=== PATIENT | female | born 1980 | race Caucasian/White ===

== ENCOUNTER 2019-01-10 10:23 | Emergency (ER) | payer MEDICAID ==
[~2019-01-10] VITALS: Ht 167.6 cm; Wt 122.7 kg
[2019-01-10 10:27] VITALS: Ht 167.6 cm; Wt 122.7 kg
[2019-01-10] MEDS ORDERED: METOPROLOL TART50 MG PO (10:29)
[2019-01-10] MEDS ORDERED: LISINOPRIL10 MG PO (10:29)
[2019-01-10] MEDS ORDERED: FUROSEMIDE20 MG PO (10:29)
[2019-01-10] MEDS ORDERED: NEURONTIN 300300 MG PO (10:30)
[2019-01-10] MEDS ORDERED: K-TAB10 MEQ PO (10:31)
[2019-01-10] MEDS ORDERED: PROVENTIL/2.5 MG/3 M INH (10:31)
[2019-01-10] MEDS ORDERED: FLOVENT DISKU250 MCG INH (10:31)
[2019-01-10] MEDS ORDERED: SINGULAIR10 MG PO (10:31)
[2019-01-10 11:04] LABS: BASOPHILS 0.2 % (0-2); EOSINOPHILS 1.6 % (0-7); HEMATOCRIT 41.2 % (36.0-48.0); HEMOGLOBIN 14.2 g/dL (12-16); IMMATURE GRANULOCYTES 0.3 % (0-5); LYMPHOCYTES 23.6 % (15-50); MCH 31.1 pg (26.0-34.0); MCHC 34.5 g/dL (31.0-37.0); MCV 90.4 fL (80.0-100.0); MEAN PLATELET VOLUME 12.4 fL (7.4-10.4); MONOCYTES 7.3 % (2-11); RBC 4.56 10x6/uL (4.00-5.40); RDW 12.8 % (11.5-14.5); WBC 8.9 10x3/uL (4.8-10.8)
[2019-01-10 11:05] LABS: PLATELET COUNT 196 10x3/uL (130-400)
[2019-01-10 11:18] LABS: ALBUMIN 3.3 g/dL (3.4-5.0); ALKALINE PHOSPHATASE 83 U/L (46-116); ALT (SGPT) 38 U/L (10-68); AMYLASE - SERUM 59 U/L (25-115); BILIRUBIN - TOTAL 0.28 mg/dL (0.2-1.3); CALC OSMOLALITY 276 mosm/kg (275-300); CARBON DIOXIDE 25.4 mmol/L (21.0-32.0); CHLORIDE - SERUM 105 mmol/L (98-107); CREATININE - SERUM 0.7 mg/dL (0.6-1.3); GLUCOSE 86 mg/dL (74-106); LIPASE 206 U/L (73-393); POTASSIUM - SERUM 4.5 mmol/L (3.5-5.1); PROTEIN - SERUM 6.9 g/dL (6.4-8.2); SODIUM 140 mmol/L (136-145); TROPONIN-I < 0.017 ng/mL (0.000-0.060); UREA NITROGEN 10 mg/dL (7-18); eGFR NON AFRICAN AMERICAN > 90 mL/min (90-120)
[2019-01-10 12:16] LABS: APPEARANCE CLEAR (CLEAR); BACTERIA FEW /hpf (NONE SEEN); BILIRUBIN NEGATIVE (NEGATIVE); COLOR YELLOW (YELLOW); EPITHELIAL CELLS 0-5 /hpf (0-5); GLUCOSE NEGATIVE (NEGATIVE); KETONE NEGATIVE (NEGATIVE); MUCUS <1+ /lpf (NONE SEEN); NITRITE NEGATIVE (NEGATIVE); PROTEIN NEGATIVE (NEGATIVE); UROBILINOGEN NORMAL (NORMAL); WHITE CELLS - URINE RARE /hpf (0-5)
[2019-01-10 14:01] VITALS: BP 142/78
== END 2019-01-10 14:02 | disposition home or self-care (01) ==
LOC: D.ER 10:23
PROVIDERS: Emergency Medicine
DX: R10.9 Unspecified abdominal pain (principal); K44.9 Diaphragmatic hernia without obstruction or gangrene

== ENCOUNTER → 2019-01-22 10:52 | Outpatient (CLI) | payer MEDICAID | END | disposition home or self-care (01) | LOC: D.RT 10:52 | DX: J44.9 Chronic obstructive pulmonary disease, unspecified (principal); R93.5 Abnormal findings on diagnostic imaging of other abdominal regions, including retroperitoneum ==

== ENCOUNTER 2019-09-16 18:20 | Emergency (ER) | payer MEDICAID ==
[2019-01-10 10:27] VITALS: BMI 43.6
[~2019-09-16 18:20] MED LIST: FLOVENT DISKU250 MCG INH; FUROSEMIDE20 MG PO; K-TAB10 MEQ PO; LISINOPRIL10 MG PO; METOPROLOL TART50 MG PO; NEURONTIN 300300 MG PO; PROVENTIL/2.5 MG/3 M INH; SINGULAIR10 MG PO
== END 2019-09-16 18:35 | disposition left against medical advice (07) ==
LOC: D.ER 18:20
DX: L50.9 Urticaria, unspecified (principal)